=== PATIENT | female | born 1985 | race Caucasian/White ===

== ENCOUNTER 2018-07-27 18:35 | Emergency (ER) | payer MEDICAID ==
[2018-07-27] MEDS: ACETAMINOPHEN 325 MG TAB PO (21:17)
[2018-07-27] MEDS: ONDANSETRON (ODT) 4 MG TAB ODT (21:17)
[2018-07-27] MEDS: KETOROLAC 60 MG INJ IM (21:25)
[2018-07-27 21:46] LABS: MONOTEST Positive (NEG)
== END 2018-07-27 22:26 | disposition home or self-care (01) ==
LOC: FTE 18:35
DX: B27.90 Infectious mononucleosis, unspecified without complication (principal)
CPT/HCPCS: 36415; 81025; 86308; 87880; 96372; 99284-25